=== PATIENT | female | born 1990 | race Hispanic/Latino ===

== ENCOUNTER 2022-09-04 20:41 | Emergency (ER) | payer SELFPAY ==
[~2022-09-04] VITALS: Ht 162.6 cm; Wt 115.2 kg
[2022-09-04] MEDS ORDERED: NAPROSYN500 MG PO (22:41)
[2022-09-04] MEDS ORDERED: MEDROL4 MG PO (22:42)
== END 2022-09-04 22:49 | disposition home or self-care (01) ==
LOC: FSED 21:16
DX: M79.671 Pain in right foot (principal); Z86.16 Personal history of COVID-19
CPT/HCPCS: 99283